=== PATIENT | female | born 1970 | race African-American/Black ===

== ENCOUNTER 2019-03-23 18:19 | Emergency (ER) | payer SELFPAY | END 2019-03-23 21:28 | disposition left against medical advice (07) | LOC: ERS 18:19 | DX: Z53.21 Procedure and treatment not carried out due to patient leaving prior to being seen by health care provider (principal) ==

== ENCOUNTER 2021-01-26 23:17 | Emergency (ER) | payer SELFPAY ==
[2021-01-26] MEDS ORDERED: Ketorolac Tromethamine 30 MG/ML VIAL ONE (23:53)
== END 2021-01-27 01:10 | disposition home or self-care (01) ==
LOC: ERS 23:17
DX: S16.1XXA Strain of muscle, fascia and tendon at neck level, initial encounter (principal); R07.89 Other chest pain
CPT/HCPCS: 71045; 84484; 93005; 96374; J1885

== ENCOUNTER 2021-09-12 19:19 | Emergency (ER) | payer SELFPAY ==
[2021-09-12 20:23] LABS: #Basophils 0.1 thou/uL (0.0-0.2); #Eosinphils 0.1 thou/uL (0.0-0.7); #Lymphocytes 2.6 thou/uL (1.20-3.40); #Monocytes 0.3 thou/uL (0.11-0.59); #Neutrophils 2.5 thou/uL (1.40-6.50); %Eosinophils 1.4 % (0.0-10.0); %Lymphocytes 46.4 % (21.0-51.0); %Neutrophils 45.2 % (42.0-75.0); Hemoglobin 12.7 g/dL (12.0-16.0); Mean Corpuscular HGB CONC 33.4 g/dL (32.0-36.0); Mean Corpuscular Hemoglobin 32.4 pg (27.0-31.0); Mean Platelet Volume 8.3 fL (7.4-10.4); Platelet Count 191 thou/uL (130-400); RBC Distribution Width 12.3 % (11.5-14.5); White Blood Cell (WBC) Count 5.6 thou/uL (4.8-10.8)
[2021-09-12 20:47] LABS: ALT (SGPT) 20 U/L (8-55); AST (SGOT) 21 U/L (5-34); Albumin 4.2 g/dL (3.5-5.0); Alkaline Phosphatase 57 U/L (40-110); Anion Gap 13 mmol/L (10-20); BUN (Urea Nitrogen) 13 mg/dL (7.0-18.7); Bilirubin, Total 0.3 mg/dL (0.2-1.2); Calc. Creatinine Clearance 0 mL/min (70-130); Calcium 9.6 mg/dL (7.8-10.44); Carbon Dioxide 24 mmol/L (22-29); Chloride 107 mmol/L (98-107); Globulin 2.7 g/dL (2.4-3.5); Glucose 91 mg/dL (70-105); Lipase 21 U/L (8-78); Potassium 4.7 mmol/L (3.5-5.1); Protein, Total 6.9 g/dL (6.0-8.3); Sodium 139 mmol/L (136-145)
== END 2021-09-12 21:29 | disposition home or self-care (01) ==
LOC: ERS 19:19
DX: R07.89 Other chest pain (principal); F17.210 Nicotine dependence, cigarettes, uncomplicated
CPT/HCPCS: 36415; 71045; 80053; 83690; 84484; 85025; 93005

== ENCOUNTER 2022-11-16 12:02 | Emergency (ER) | payer OTHER, SELFPAY ==
[2022-11-16] MEDS ORDERED: Acetaminophen 500 MG TAB ONE (13:13)
[2022-11-16] MEDS ORDERED: Cyclobenzaprine 10 MG TAB ONE (13:13)
== END 2022-11-16 13:32 | disposition home or self-care (01) ==
LOC: ERS 12:02
DX: M25.511 Pain in right shoulder (principal); R51.9 Headache, unspecified
CPT/HCPCS: 99283